=== PATIENT | female | born 2000 | race African-American/Black ===

== ENCOUNTER 2025-01-18 16:28 | Emergency (ER) | payer OTHER ==
[~2025-01-18] VITALS: Ht 172.7 cm; Wt 65.0 kg
[2025-01-18] MEDS: ACETAMINOPHEN 325 MG TABLET PO ONE (19:46)
[2025-01-18] MEDS ORDERED: CYCL-448 PO (22:14)
[2025-01-18] MEDS ORDERED: TRAM50TA5 PO (22:14)
[2025-01-18] MEDS ORDERED: LIDO-57 TP (22:15)
[2025-01-18 22:22] VITALS: BP 124/66; PULSE 68; RESP 18; TEMP 98; O2SAT 97
[2025-01-18] MEDS: LIDOCAINE 5% TRANSDERMAL PATCH TD ONE (23:05)
== END 2025-01-18 23:09 | disposition home or self-care (01) ==
LOC: EMS 16:28
DX: M79.18 Myalgia, other site (principal); M54.2 Cervicalgia
CPT/HCPCS: 72125; 99284; Z7502; Z7610